=== PATIENT | female | born 1970 ===

== ENCOUNTER 2018-11-17 10:43 | Inpatient (IN) | payer OTHER ==
[2018-11-17 11:13] LABS: Basophils # (Auto) 0.1 K/mm3 (0.0-0.1); Basophils % (Auto) 0.8 % (0.0-1.8); Eosinophils # (Auto) 0.2 K/mm3 (0.0-0.4); Eosinophils % (Auto) 2.1 % (0.0-4.3); Hematocrit 43.6 % (30.3-42.9); Hemoglobin 14.4 gm/dl (10.1-14.3); Lymphocytes # (Auto) 1.8 K/mm3 (1.2-5.4); Lymphocytes % (Auto) 25.1 % (13.4-35.0); Mean Corpuscular HGB Conc 33 % (30-34); Mean Corpuscular Volume 88 fl (79-97); Monocytes # (Auto) 0.7 K/mm3 (0.0-0.8); Monocytes % (Auto) 10.1 % (0.0-7.3); Platelet Count 247 K/mm3 (140-440); Red Blood Count 4.95 M/mm3 (3.65-5.03); Red Cell Distribution Width 13.8 % (13.2-15.2)
--- NOTE | 2018-11-17 11:16 | Consultation ---
History of Present Illness History of present illness: [facility] Consult Services Impression: Patient presenting with agitation, encephalopathy, variable motor findings in the legs. Suspect more of a functional process. Rule out sinister intracranial process with MRI brain. Posterior circulation stroke manifest as her dizziness/N/V cannot be excluded, so not a tPA/intervention candidate as these symptoms started 4 days ago. Not a tpa candidate due to: out of window Not an KINDRA candidate due to: out of window Differential Diagnosis: 1. Cardioembolic stroke 2. Small vessel disease/lacune 3. Thromboembolic, [id number]-xptgdy mechanism 4. Hypercoagulable state-related infarct 5. Transient ischemic attack 6. Thrombotic mechanism, large artery disease 7. Functional disorder Comments: Door time: 1043 [facility] contacted: [phone] [facility] at bedside: 1101 NIHSS assessment time: 1104 Recommendations: MRI brain wo inpatient neurology consultation Inpatient stroke evaluation as per Neurology/ Internal Medicine Discussed with ED MD CC: stroke alert History of Present Illness Patient is a48 year old woman with no reported medical history. She presented from a clinic due to speech changes. Visit facilitated by Nigerian floor finisher helper. states she's been complaining of dizziness and nausea/vomiting for the last 4 days. She went to a clinic this morning and the provider thought her speech was slurred, so she was sent to the ED. On arrival, she has not been following commands, has been agitated and arguing with her . Speech at points has been nonsensical per education technician. Diagnostic: CT head wo - motion degraded, but nothing obviously acute Exam: NIHSS score: 13 She does not answer orientation questions and is not following commands. She is mainly arguing with her . She is seen moving her legs, but on exam they become flaccid. She has some periods of nonsensical speech without dysarthria Medical Decision Making: - Extensive number of diagnosis or management options are considered above. - Extensive amount of complex data reviewed. - High risk of complication and/or morbidity or mortality are associated with differential diagnostic considerations above. - There may be Uncertain outcome and increased probability of prolonged functional impairment or high probability of severe prolonged functional impairment associated with some of these differential diagnosis. Medical Data Reviewed: 1.Data reviewed include clinical labs, radiology, Medical Tests; 2.Tests results discussed w/performing or interpreting physician; 3.Obtaining/reviewing old medical records; 4.Obtaining case history from another source; 5.Independent review of image, tracing or specimen. Patient was informed the Neurology Consult would happen via TeleHealth consult by way of interactive audio and video telecommunications and consented to rec eiving care in this manner. Medications and Allergies Allergies Allergy/AdvReac Type Severity Reaction Status Date / Time naproxen Allergy Unknown Verified 11/17/18 11:08 Physical Examination - Vital Signs Vital Signs: Vital Signs Pulse Resp BP Pulse Ox 82 20 137/72 100 11/17/18 11:01 11/17/18 11:01 11/17/18 11:01 11/17/18 11:01 - Level of Consciousness 1a. Level of Consciousness: alert/keenly responsive - LOC Questions 1b. LOC Questions: answers no questions correctly - LOC Command 1c. LOC Commands: performs no tasks correctly - Best Gaze 2. Best Gaze: normal - Visual 3. Visual: no visual loss - Facial Palsy 4. Facial Palsy: normal symmetrical movement - Motor Arm 5a. Motor Arm Left: no drift 5b. Motor Arm Right: no drift - Motor Leg 6a. Motor Leg Left: no movement 6b. Motor Leg Right: no movement - Limb Ataxia 7. Limb Ataxia: absent - Sensory 8. Sensory: normal - Best Language 9. Best Language: mild/moderate aphasia - Dysarthria 10. Dysarthria: normal - Extinction and Inattention 11. Extinction/Inattention: no abnormality - Scoring Total Score: 13 Stroke Severity: Moderate Stroke Results - Laboratory Findings CBC and BMP: 11/17/18 11:01 11/17/18 11:01
[2018-11-17] MEDS ORDERED: ATIVAN ONE (11:22)
[2018-11-17 11:23] LABS: INR 0.96 (0.87-1.13)
[2018-11-17 11:24] LABS: Partial Thromboplastin Time 20.5 Sec. (24.2-36.6); Thrombin Time 15.4 Sec. (15.1-19.6)
[2018-11-17 11:31] LABS: Creatine Kinase MB 1.7 ng/mL (0.0-4.0)
[2018-11-17 11:32] LABS: Alanine Aminotransferase 42 units/L (7-56); Albumin 4.6 g/dL (3.9-5); BUN/Creatinine Ratio 17; Blood Urea Nitrogen 12 mg/dL (7-17); Calcium 9.9 mg/dL (8.4-10.2); Hemolysis Index 16
[2018-11-17] MEDS ORDERED: ATIVAN IV ONE (11:32)
--- NOTE | 2018-11-17 11:49 | Emergency Department Report ---
ED Altered Mental Status HPI - General Chief Complaint: Altered Mental Status Stated Complaint: WEAKNESS/DIZZY Time Seen by Provider: 11/17/18 10:55 Source: patient, family, EMS, chopper operator Mode of arrival: Stretcher Limitations: Language Barrier, Altered Mental Status - History of Present Illness Initial Comments: 48-year-old female presents to easily with 4 day history of generalized weakness and confusion. The patient was seen at a clinic this morning and the physician there and noticed that patient was having slurred speech, so EMS was called. Upon EMS arrival to the clinic physician reported that patient slurred speech resolved. Patient transported here to the ER. Patient has no weakness in her extremities. states since he started 4 days ago as well. Today was the first day of slurred speech. Patient complains of body aches diffusely. Haven't had been reports patient has had dizziness, nausea and vomiting 4 days. MD Complaint: altered mental status, confusion -: days(s) (4) Severity: severe Consistency of Symptoms: waxing and waning Associated Symptoms: weakness - Related Data Home Medications Medication Instructions Recorded Confirmed Last Taken No Known Home Medications [No 11/17/18 11/17/18 Unknown Reported Home Medications] Allergies Allergy/AdvReac Type Severity Reaction Status Date / Time naproxen Allergy Unknown Verified 11/17/18 11:08 ED Review of Systems ROS: Stated complaint: WEAKNESS/DIZZY Other details as noted in HPI Comment: All other systems reviewed and negative Constitutional: chills, fever Respiratory: denies: shortness of breath Cardiovascular: denies: chest pain Gastrointestinal: nausea, vomiting. denies: abdominal pain Neurological: confusion, other (dizziness, slurred speech reported). denies: headache ED Past Medical Hx - Medications Home Medications: Home Medications Medication Instructions Recorded Confirmed Last Taken Type No Known Home Medications [No 11/17/18 11/17/18 Unknown History Reported Home Medications] ED Physical Exam - General Limitations: Language Barrier, Altered Mental Status General appearance: alert, in no apparent distress - Head Head exam: Present: atraumatic, normocephalic - Eye Eye exam: Present: normal appearance, PERRL, EOMI - ENT ENT exam: Present: mucous membranes moist - Neck Neck exam: Present: normal inspection, full ROM - Respiratory Respiratory exam: Present: normal lung sounds bilaterally. Absent: respiratory distress - Cardiovascular Cardiovascular Exam: Present: regular rate, normal rhythm - GI/Abdominal GI/Abdominal exam: Present: soft, tenderness (suprapubic). Absent: distended - Extremities Exam Extremities exam: Present: normal inspection - Neurological Exam Neurological exam: Present: alert, altered (oriented to self), CN II-XII intact. Absent: motor sensory deficit - Psychiatric Psychiatric exam: Present: normal affect, normal mood - Skin Skin exam: Present: warm, dry, intact, normal color ED Course Vital Signs 11/17/18 11/17/18 11/17/18 11:01 12:00 12:07 Temperature 98.4 F Pulse Rate 82 77 Respiratory 20 28 H Rate Blood Pressure 141/87 Blood Pressure 137/72 [Right] O2 Sat by Pulse 100 99 Oximetry 11/17/18 11/17/18 11/17/18 12:30 13:00 13:50 Temperature Pulse Rate 68 Respiratory 16 12 Rate Blood Pressure 141/87 141/87 141/87 Blood Pressure [Right] O2 Sat by Pulse 99 94 97 Oximetry 11/17/18 11/17/18 11/17/18 14:00 14:02 15:30 Temperature Pulse Rate 77 Respiratory 14 Rate Blood Pressure 124/36 129/85 Blood Pressure 141/87 [Right] O2 Sat by Pulse 97 97 95 Oximetry 11/17/18 11/17/18 11/17/18 16:00 16:30 17:00 Temperature Pulse Rate 70 61 Respiratory 22 23 Rate Blood Pressure 128/62 143/80 137/74 Blood Pressure [Right] O2 Sat by Pulse 99 94 94 Oximetry 11/17/18 11/17/18 11/17/18 17:30 18:00 18:32 Temperature Pulse Rate 65 68 60 Respiratory 23 22 13 Rate Blood Pressure 122/72 127/65 109/55 Blood Pressure [Right] O2 Sat by Pulse 96 93 Oximetry 11/17/18 11/17/18 19:00 19:30 Temperature Pulse Rate 56 L 52 L Respiratory 18 19 Rate Blood Pressure 105/64 105/68 Blood Pressure [Right] O2 Sat by Pulse Oximetry - Lab Data Result diagrams: 11/17/18 11:01 11/17/18 11:01 Lab Results 11/17/18 11/17/18 11/17/18 Range/Units 11:01 11:01 11:01 WBC 7.3 (4.5-11.0) K/mm3 RBC 4.95 (3.65-5.03) M/mm3 Hgb 14.4 H (10.1-14.3) gm/dl Hct 43.6 H (30.3-42.9) % MCV 88 (79-97) fl MCH 29 (28-32) pg MCHC 33 (30-34) % RDW 13.8 (13.2-15.2) % Plt Count 247 (140-440) K/mm3 Lymph % (Auto) 25.1 (13.4-35.0) % [place] % (Auto) 10.1 H (0.0-7.3) % Eos % (Auto) 2.1 (0.0-4.3) % Baso % (Auto) 0.8 (0.0-1.8) % Lymph # 1.8 (1.2-5.4) K/mm3 [place] # 0.7 (0.0-0.8) K/mm3 Eos # 0.2 (0.0-0.4) K/mm3 Baso # 0.1 (0.0-0.1) K/mm3 Seg Neutrophils % 61.9 (40.0-70.0) % Seg Neutrophils # 4.5 (1.8-7.7) K/mm3 PT 12.5 (12.2-14.9) Sec. INR 0.96 (0.87-1.13) APTT 20.5 L (24.2-36.6) Sec. Thrombin Time 15.4 (15.1-19.6) Sec. Sodium 139 (137-145) mmol/L Potassium 3.9 (3.6-5.0) mmol/L Chloride 100.2 (98-107) mmol/L Carbon Dioxide 26 (22-30) mmol/L Anion Gap 17 mmol/L BUN 12 (7-17) mg/dL Creatinine 0.7 (0.7-1.2) mg/dL Estimated GFR > 60 ml/min BUN/Creatinine Ratio 17 % Glucose 110 H (65-100) mg/dL POC Glucose (70-105) Calcium 9.9 (8.4-10.2) mg/dL Total Bilirubin 0.60 (0.1-1.2) mg/dL AST 28 (5-40) units/L ALT 42 (7-56) units/L Alkaline Phosphatase 87 (35-129) units/L Total Creatine Kinase 62 (30-135) units/L CK-MB (CK-2) 1.7 (0.0-4.0) ng/mL CK-MB (CK-2) Rel Index 2.7 (0-4) Troponin T < 0.010 (0.00-0.029) ng/mL Total Protein 7.8 (6.3-8.2) g/dL Albumin 4.6 (3.9-5) g/dL Albumin/Globulin Ratio 1.4 % Urine Color (Yellow) Urine Turbidity (Clear) Urine pH (5.0-7.0) Ur Specific [place] (1.003-1.030) Urine Protein (Negative) mg/dL Urine Glucose (UA) (Negative) mg/dL Urine Ketones (Negative) mg/dL Urine Blood (Negative) Urine Nitrite (Negative) Urine Bilirubin (Negative) Urine Urobilinogen (<2.0) mg/dL Ur Leukocyte Esterase (Negative) Urine WBC (Auto) (0.0-6.0) /HPF Urine RBC (Auto) (0.0-6.0) /HPF U Epithel Cells (Auto) (0-13.0) /HPF Amorphous Crystals Urine Mucus /HPF 11/17/18 11/17/18 Range/Units 11:03 12:07 WBC (4.5-11.0) K/mm3 RBC (3.65-5.03) M/mm3 Hgb (10.1-14.3) gm/dl Hct (30.3-42.9) % MCV (79-97) fl MCH (28-32) pg MCHC (30-34) % RDW (13.2-15.2) % Plt Count (140-440) K/mm3 Lymph % (Auto) (13.4-35.0) % [place] % (Auto) (0.0-7.3) % Eos % (Auto) (0.0-4.3) % Baso % (Auto) (0.0-1.8) % Lymph # (1.2-5.4) K/mm3 [place] # (0.0-0.8) K/mm3 Eos # (0.0-0.4) K/mm3 Baso # (0.0-0.1) K/mm3 Seg Neutrophils % (40.0-70.0) % Seg Neutrophils # (1.8-7.7) K/mm3 PT (12.2-14.9) Sec. INR (0.87-1.13) APTT (24.2-36.6) Sec. Thrombin Time (15.1-19.6) Sec. Sodium (137-145) mmol/L Potassium (3.6-5.0) mmol/L Chloride (98-107) mmol/L Carbon Dioxide (22-30) mmol/L Anion Gap mmol/L BUN (7-17) mg/dL Creatinine (0.7-1.2) mg/dL Estimated GFR ml/min BUN/Creatinine Ratio % Glucose (65-100) mg/dL POC Glucose 103 (70-105) Calcium (8.4-10.2) mg/dL Total Bilirubin (0.1-1.2) mg/dL AST (5-40) units/L ALT (7-56) units/L Alkaline Phosphatase (35-129) units/L Total Creatine Kinase (30-135) units/L CK-MB (CK-2) (0.0-4.0) ng/mL CK-MB (CK-2) Rel Index (0-4) Troponin T (0.00-0.029) ng/mL Total Protein (6.3-8.2) g/dL Albumin (3.9-5) g/dL Albumin/Globulin Ratio % Urine Color Yellow (Yellow) Urine Turbidity Hazy (Clear) Urine pH 9.0 H (5.0-7.0) Ur Specific [place] 1.015 (1.003-1.030) Urine Protein <15 mg/dl (Negative) mg/dL Urine Glucose (UA) Neg (Negative) mg/dL Urine Ketones 20 (Negative) mg/dL Urine Blood Neg (Negative) Urine Nitrite Neg (Negative) Urine Bilirubin Neg (Negative) Urine Urobilinogen < 2.0 (<2.0) mg/dL Ur Leukocyte Esterase Neg (Negative) Urine WBC (Auto) 5.0 (0.0-6.0) /HPF Urine RBC (Auto) 2.0 (0.0-6.0) /HPF U Epithel Cells (Auto) 2.0 (0-13.0) /HPF Amorphous Crystals Few Urine Mucus Few /HPF - EKG Data -: EKG Interpreted by Me EKG shows normal: sinus rhythm, axis, intervals, QRS complexes, ST-T waves Rate: normal Interpretation: no acute changes - Radiology Data Radiology results: report reviewed, image reviewed - Medical Decision Making - dizziness, confusion, vomiting x 4 days - episode of slurred speech today that resolved - no other neuro deficits - CT Head normal - pt seen and evaluated by teleneurologist - outside tPA window since initial sx's for 4 days - labs unremarkable - will admit for further workup - Differential Diagnosis CVA, vertigo, infection Critical care attestation.: If time is entered above; I have spent that time in minutes in the direct care of this critically ill patient, excluding procedure time. ED Disposition Clinical Impression: Dizziness, Encephalopathy acute Disposition: DC-[id number] OP ADMIT IP TO THIS HOSP Is pt being admited?: Yes Condition: Stable Time of Disposition: 12:50
--- NOTE | 2018-11-17 11:53 | Cat Scan Report ---
CT HEAD WITHOUT CONTRAST INDICATION / CLINICAL INFORMATION: Stroke symptoms. Code stroke. TECHNIQUE: Axial imaging performed from the skull apex through the skull base without the use of cont rast. Sagittal and coronal reformatted images. All CT scans at this location are performed using CT dose reduction for ALARA by means of automated exposure control. COMPARISON: None available. FINDINGS: Comment: This exam is limited by extensive motion artifact. CEREBRAL PARENCHYMA: No significant abnormality. No acute territorial infarct. HEMORRHAGE: None. EXTRA-AXIAL SPACES: Normal in size and morphology for the patient's age. VENTRICULAR SYSTEM: Normal in size and morphology for the patient's age. MIDLINE SHIFT OR HERNIATION: None. CEREBELLUM / BRAINSTEM: No significant abnormality. CALVARIUM: No significant abnormality. ORBITS: Normal as visualized. PARANASAL SINUSES / MASTOID AIR CELLS: Normal as visualized. SOFT TISSUES of HEAD: No significant abnormality. ADDITIONAL FINDINGS: None. IMPRESSION: Slightly limited exam by motion. No acute intracranial process is identified. These findings were discussed with Dr. Alex in the emergency department at 1145 hours Eastern standar d time. Signer Name: Brock Engel Jr, MD Signed: 11/17/2018 11:49 AM Workstation Name: [id number]
[2018-11-17 12:23] LABS: Amorphous Crystals,Urine Few; Bilirubin,Urine NEG (Negative); Blood,Urine NEG (Negative); Color,Urine Yellow (Yellow); Mucus,Urine FEW /HPF; Protein,Urine <15 mg/dL mg/dL (Negative); Urobilinogen,Urine < 2.0 mg/dL (<2.0)
--- NOTE | 2018-11-17 12:38 | XRay Report ---
CHEST 1 VIEW 11:40 AM INDICATION / CLINICAL INFORMATION: Altered mental status. COMPARISON: None available. FINDINGS: SUPPORT DEVICES: None. HEART / MEDIASTINUM: The heart size and pulmonary vasculature are normal. The aorta is normal in jeff fransisco. LUNGS / PLEURA: Low lung volumes without significant parenchymal or pleural abnormality. No pneumotho rax. ADDITIONAL FINDINGS: No significant additional findings. IMPRESSION: Low lung volumes without acute abnormality. Signer Name: Elian Sheriff MD Signed: 11/17/2018 12:34 PM Workstation Name: [id number]
[2018-11-17] MEDS ORDERED: IBUPROFEN PO ONE (16:19)
[2018-11-17] MEDS ORDERED: IBUPROFEN PO PRN (18:09)
[2018-11-17] MEDS ORDERED: DILAUDID IV PRN (18:09)
[2018-11-17] MEDS ORDERED: SODIUM CHLORIDE FLUSH SYRINGE 10 ML IV PRN ×3 (18:09→18:25)
[2018-11-17] MEDS ORDERED: ZOFRAN IV PRN ×2 (18:09→18:12)
[2018-11-17] MEDS ORDERED: ANTIVERT PO PRN (18:11)
[2018-11-17] MEDS ORDERED: REGLAN IV PRN (18:12)
[2018-11-17] MEDS ORDERED: PHENERGAN PR PRN (18:12)
[2018-11-17] MEDS ORDERED: TYLENOL PO PRN (18:12)
[2018-11-17] MEDS: PEPCID IV SCH (21:34)
[2018-11-17] MEDS: NACL 0.9% 1000 ML 1,000 ML IV SCH (21:34)
[2018-11-17] MEDS: SODIUM CHLORIDE FLUSH SYRINGE 10 ML IV SCH ×2 (21:38)
[2018-11-18] MEDS: TYLENOL PO PRN ×3 (01:51→21:48)
--- NOTE | 2018-11-18 02:53 | Event Note ---
Date: 11/17/18 See H/p in reports Encephalopathy CVA? Ataxia Acute Labrynthitis N//V
--- NOTE | 2018-11-18 03:21 | History and Physical Report ---
CHIEF COMPLAINT: 1. Altered mental status. 2. Nausea and vomiting for 3-4 days. 3. Slurred speech. 4. Ataxic gait. HISTORY OF PRESENT ILLNESS: A 48-year-old female with no significant past medical history, comes in for slurred speech, nausea, vomiting for 3-4 days and ataxic gait, also confusion present. Because of the language barrier, history taking was difficult. As per the , the patient has been having nausea and vomiting 3-4 times a day and also unsteady gait. Also, some confusion, which has resolved of late. During my exam, the patient was not confused, able to answer questions appropriately in spite of the language barrier. PAST MEDICAL HISTORY: None. PAST SURGICAL HISTORY: None. SOCIAL HISTORY: Does not smoke. No alcohol, no recreational drugs. FAMILY HISTORY: Hypertension. REVIEW OF SYSTEMS: Significant for nausea and vomiting for 4 days along with slurred speech and unsteady gait. Slight confusion which is clearing now. PHYSICAL EXAMINATION: GENERAL: Middle-aged female, cooperative during examination. VITAL SIGNS: Blood pressure is 109/55, temperature 98.5, pulse 60, respirations 13. HEENT: Unremarkable. Pupils equal and reactive. NECK: Supple, no lymphadenopathy, no thyromegaly. LUNGS: Clear to auscultation and percussion. Good air entry. CARDIOVASCULAR: S1, S2 heard. No gallop, no murmur, no rub. Apical impulse in left fifth intercostal space and midclavicular line. ABDOMEN: Soft and benign. No hepatosplenomegaly. No guarding, no rigidity. Hernial orifices are normal. EXTREMITIES: 5/5 power in all 4 extremities. NEUROLOGIC: Gait could not be tested as the patient was refusing to do it. Hand-eye coordination normal. No nystagmus. No nasal regurgitation of fluids. LABORATORY DATA: Significant for white count of 7300, H and H is 14.4 and 43.6, platelet count is 247,000. Electrolytes are normal. Glucose is 110, slightly high. Protein is normal. Urine is normal. Head CT was normal. Echocardiogram showed normal sinus rhythm, heart rate of 68 per minute, no acute ST-T wave changes. Head CT, no acute findings. Chest x-ray, no acute findings. ASSESSMENT AND PLAN: 1. Acute encephalopathy, etiology unclear. The patient has slurred speech and confusion, which has resolved. No seizures. We will observe. EEG if necessary. 2. Ataxia, possibly secondary to labyrinthitis. As per tele Neurology, we will do the stroke workup. 3. Acute labyrinthitis. Meclizine 12.5 b.i.d. 4. Acute dehydration secondary to nausea and vomiting. IV fluids for now. 5. Deep venous thrombosis prophylaxis, Lovenox 40 mg subcutaneous daily. 6. Gastrointestinal prophylaxis, Protonix 40 mg subcutaneous daily. [facility]# [id number] VSM/NTS
[2018-11-18 06:28] LABS: Basophils # (Auto) 0.1 K/mm3 (0.0-0.1); Basophils % (Auto) 0.6 % (0.0-1.8); Eosinophils # (Auto) 0.2 K/mm3 (0.0-0.4); Eosinophils % (Auto) 2.8 % (0.0-4.3); Hematocrit 39.3 % (30.3-42.9); Hemoglobin 13.2 gm/dl (10.1-14.3); Lymphocytes # (Auto) 2.2 K/mm3 (1.2-5.4); Lymphocytes % (Auto) 25.4 % (13.4-35.0); Mean Corpuscular HGB Conc 34 % (30-34); Mean Corpuscular Volume 87 fl (79-97); Monocytes # (Auto) 0.9 K/mm3 (0.0-0.8); Monocytes % (Auto) 9.9 % (0.0-7.3); Platelet Count 233 K/mm3 (140-440); Red Cell Distribution Width 13.7 % (13.2-15.2)
[2018-11-18 06:53] LABS: Alanine Aminotransferase 35 units/L (7-56); Albumin 4.1 g/dL (3.9-5); BUN/Creatinine Ratio 22; Blood Urea Nitrogen 13 mg/dL (7-17); Hemolysis Index 6; LDL Cholesterol,Direct 131 mg/dL (50-130)
[2018-11-18 07:36] LABS: Chol/HDL Ratio 3.53 %; HDL Cholesterol 54 mg/dL (40-59)
--- NOTE | 2018-11-18 08:17 | Progress Note ---
Assessment and Plan Assessment and plan: --Slurred speech: Rule out CVA/TIA Not a candidate for TPA , telemetry neurologist recommend neuro workup Follow MRI MRA carotid Doppler, echocardiogram PT OT ST, follow neurology consult --Ataxia; probably due to neuro symptoms Fall precautions, physical therapy, follow neuro workup May need ENT evaluation if no improvement upon discharge --Metabolic encephalopathy; present on admission Dizziness confusion, supportive care Follow neuro workup --Intractable nausea vomiting/acute gastritis IV fluids, Protonix, supportive care --Dyslipidemia; statin, low cholesterol diet --DVT prophylaxis; Lovenox Monitor closely and adjust the management as needed His CVA workup is negative and patient is stable May be discharged home tomorrow Plan of care reviewed with the patient and her at the bedside Through the language line History Interval history: Patient seen and examined medical records reviewed Conversation through the language line Patient was Admitted with brief episode of slurred speech Candidate for TPA CVA workup is in progress Patient is evaluated by a neurologist Patient is alert and awake speech clear Complaints of headache Vital signs reviewed Hospitalist Physical - Constitutional Vitals: Temp Pulse Resp BP Pulse Ox 99.2 F 69 20 131/79 98 11/18/18 04:27 11/18/18 04:27 11/18/18 04:27 11/18/18 04:27 11/18/18 04:27 General appearance: Present: no acute distress, well-nourished - EENT Eyes: Present: PERRL, EOM intact - Neck Neck: Present: supple, normal ROM - Respiratory Respiratory effort: normal Respiratory: bilateral: diminished, negative: rales, rhonchi, wheezing - Cardiovascular Rhythm: regular Heart Sounds: Present: S1 & S2 - Extremities Extremities: no ischemia, No edema - Abdominal General gastrointestinal: soft, non-tender, non-distended, normal bowel sounds - Integumentary Integumentary: Present: clear, warm - Psychiatric Psychiatric: appropriate mood/affect, cooperative - Neurologic Neurologic: CNII-XII intact, moves all extremities Results - Labs CBC & Chem 7: 11/18/18 05:55 11/18/18 05:55 Labs: Laboratory Last Values WBC 8.8 K/mm3 (4.5-11.0) 11/18/18 05:55 RBC 4.50 M/mm3 (3.65-5.03) 11/18/18 05:55 Hgb 13.2 gm/dl (10.1-14.3) 11/18/18 05:55 Hct 39.3 % (30.3-42.9) 11/18/18 05:55 MCV 87 fl (79-97) 11/18/18 05:55 MCH 29 pg (28-32) 11/18/18 05:55 MCHC 34 % (30-34) 11/18/18 05:55 RDW 13.7 % (13.2-15.2) 11/18/18 05:55 Plt Count 233 K/mm3 (140-440) 11/18/18 05:55 Lymph % (Auto) 25.4 % (13.4-35.0) 11/18/18 05:55 Nobles % (Auto) 9.9 % (0.0-7.3) H 11/18/18 05:55 Eos % (Auto) 2.8 % (0.0-4.3) 11/18/18 05:55 Baso % (Auto) 0.6 % (0.0-1.8) 11/18/18 05:55 Lymph # 2.2 K/mm3 (1.2-5.4) 11/18/18 05:55 [place]les # 0.9 K/mm3 (0.0-0.8) H 11/18/18 05:55 Eos # 0.2 K/mm3 (0.0-0.4) 11/18/18 05:55 Baso # 0.1 K/mm3 (0.0-0.1) 11/18/18 05:55 Seg Neutrophils % 61.3 % (40.0-70.0) 11/18/18 05:55 Seg Neutrophils # 5.4 K/mm3 (1.8-7.7) 11/18/18 05:55 PT 12.5 Sec. (12.2-14.9) 11/17/18 11:01 INR 0.96 (0.87-1.13) 11/17/18 11:01 APTT 20.5 Sec. (24.2-36.6) L 11/17/18 11:01 15.4 Sec. (15.1-19.6) 11/17/18 11:01 Sodium 141 mmol/L (137-145) 11/18/18 05:55 Potassium 3.9 mmol/L (3.6-5.0) 11/18/18 05:55 Chloride 104.2 mmol/L (98-107) 11/18/18 05:55 Carbon Dioxide 24 mmol/L (22-30) 11/18/18 05:55 17 mmol/L 11/18/18 05:55 BUN 13 mg/dL (7-17) 11/18/18 05:55 0.6 mg/dL (0.7-1.2) L 11/18/18 05:55 Estimated GFR > 60 ml/min 11/18/18 05:55 22 % 11/18/18 05:55 Glucose 99 mg/dL (65-100) 11/18/18 05:55 POC Glucose 103 (70-105) 11/17/18 11:03 5.4 % (4-6) 11/17/18 19:46 Calcium 9.0 mg/dL (8.4-10.2) 11/18/18 05:55 0.70 mg/dL (0.1-1.2) 11/18/18 05:55 AST 22 units/L (5-40) 11/18/18 05:55 ALT 35 units/L (7-56) 11/18/18 05:55 78 units/L (35-129) 11/18/18 05:55 62 units/L (30-135) 11/17/18 11:01 CK-MB (CK-2) 1.7 ng/mL (0.0-4.0) 11/17/18 11:01 CK-MB (CK-2) Rel Index 2.7 (0-4) 11/17/18 11:01 < 0.010 ng/mL (0.00-0.029) 11/17/18 11:01 6.9 g/dL (6.3-8.2) 11/18/18 05:55 4.1 g/dL (3.9-5) 11/18/18 05:55 1.5 % 11/18/18 05:55 Triglycerides 111 mg/dL (2-149) 11/18/18 05:55 Cholesterol 191 mg/dL (50-199) 11/18/18 05:55 131 mg/dL (50-130) H 11/18/18 05:55 54 mg/dL (40-59) 11/18/18 05:55 3.53 % 11/18/18 05:55 Yellow (Yellow) 11/17/18 12:07 Hazy (Clear) 11/17/18 12:07 9.0 (5.0-7.0) H 11/17/18 12:07 Ur Specific [place] 1.015 (1.003-1.030) 11/17/18 12:07 <15 mg/dl mg/dL (Negative) 11/17/18 12:07 Neg mg/dL (Negative) 11/17/18 12:07 20 mg/dL (Negative) 11/17/18 12:07 Neg (Negative) 11/17/18 12:07 Neg (Negative) 11/17/18 12:07 Neg (Negative) 11/17/18 12:07 < 2.0 mg/dL (<2.0) 11/17/18 12:07 Ur Leukocyte Esterase Neg (Negative) 11/17/18 12:07 5.0 /HPF (0.0-6.0) 11/17/18 12:07 2.0 /HPF (0.0-6.0) 11/17/18 12:07 U Epithel Cells (Auto) 2.0 /HPF (0-13.0) 11/17/18 12:07 Amorphous Crystals Few 11/17/18 12:07 Few /HPF 11/17/18 12:07 Active Medications - Current Medications Current Medications: Generic Name Dose Route Start Last Admin Trade Name Freq PRN Reason Stop Dose Admin Acetaminophen 650 mg 11/17/18 18:09 11/18/18 07:33 Tylenol PO 650 mg Q4H PRN Administration Pain MILD(1-3)/Fever >100.5/SAAVEDRA Acetaminophen 650 mg 11/17/18 18:12 Tylenol PO Q4H PRN Pain MILD(1-3)/Fever >100.5/SAAVEDRA Famotidine 20 mg 11/17/18 22:00 11/17/18 21:34 Pepcid IV 20 mg BID EDITH Administration Hydromorphone HCl 0.5 mg 11/17/18 18:09 Dilaudid IV Q3H PRN Pain , Severe (7-10) Sodium Chloride 1,000 mls @ 75 mls/hr 11/17/18 19:00 11/17/18 21:34 Nacl 0.9% 1000 Ml IV 75 mls/hr DIRECT EDITH Administration Ibuprofen 600 mg 11/17/18 18:09 Ibuprofen PO Q6H PRN Pain, Mild (1-3) Meclizine HCl 12.5 mg 11/17/18 18:11 Antivert PO Q12H PRN Vertigo Metoclopramide HCl 10 mg 11/17/18 18:12 Reglan IV Q6H PRN Nausea And Vomiting Ondansetron HCl 4 mg 11/17/18 18:09 Zofran IV Q8H PRN Nausea And Vomiting Ondansetron HCl 4 mg 11/17/18 18:12 Zofran IV Q3H PRN Nausea And Vomiting Promethazine HCl 25 mg 11/17/18 18:12 Phenergan CO Q6H PRN N/V IF NPO AND NO IV ACCESS Sodium Chloride 10 ml 11/17/18 22:00 11/17/18 21:38 Sodium Chloride Flush Syringe 10 Ml IV 10 ml BID EDITH Administration Sodium Chloride 10 ml 11/17/18 18:09 Sodium Chloride Flush Syringe 10 Ml IV PRN PRN LINE FLUSH Sodium Chloride 10 ml 11/17/18 22:00 11/17/18 21:38 Sodium Chloride Flush Syringe 10 Ml IV Not Given BID EDITH Sodium Chloride 10 ml 11/17/18 18:12 Sodium Chloride Flush Syringe 10 Ml IV PRN PRN LINE FLUSH Sodium Chloride 10 ml 11/17/18 18:25 Sodium Chloride Flush Syringe 10 Ml IV PRN PRN LINE FLUSH
[2018-11-18] MEDS: PEPCID IV SCH ×2 (09:41→21:48)
[2018-11-18] MEDS: SODIUM CHLORIDE FLUSH SYRINGE 10 ML IV SCH ×4 (09:41→21:49)
--- NOTE | 2018-11-18 11:36 | Vascular Lab Report ---
BILATERAL CAROTID DOPPLER ULTRASOUND INDICATION : stroke TECHNIQUE: Grayscale and color Doppler imaging performed through the neck. COMPARISON: None FINDINGS: Right: There is mild smooth noncalcified plaque at the bifurcation. Peak systolic velocity in the C CA is 65 cm/s with end-diastolic velocity of 22 cm/s. Peak systolic velocity in the proximal ICA is 8 1 cm/s with end-diastolic velocity of 37 cm/s. ICA to CCA ratio is less than 2. There is antegrade f low in the ECA and the vertebral artery. Left: There is mild smooth noncalcified plaque at the bifurcation. Peak systolic velocity in the CCA is 53 cm/s with end-diastolic velocity of 13 cm/s. Peak systolic velocity in the proximal ICA is 67 c m/s with end-diastolic velocity of 24 cm/s. ICA to CCA ratio is less than 2. There is antegrade flow in the ECA and the vertebral artery. IMPRESSION: No hemodynamically significant stenosis by NASCET criteria. There is less than 50% lumina l narrowing in the carotid systems bilaterally. Signer Name: Brock Engel Jr, MD Signed: 11/18/2018 11:32 AM Workstation Name: [id number]
--- NOTE | 2018-11-18 12:54 | Consultation ---
Medications and Allergies Allergies Allergy/AdvReac Type Severity Reaction Status Date / Time naproxen Allergy Unknown Verified 11/17/18 11:08 Home Medications Medication Instructions Recorded Confirmed Last Taken Type No Known Home Medications [No 11/17/18 11/17/18 Unknown History Reported Home Medications] Active Meds: Active Medications Acetaminophen (Tylenol) 650 mg PO Q4H PRN PRN Reason: Pain MILD(1-3)/Fever >100.5/SAAVEDRA Last Admin: 11/18/18 07:33 Dose: 650 mg Documented by: Acetaminophen (Tylenol) 650 mg PO Q4H PRN PRN Reason: Pain MILD(1-3)/Fever >100.5/SAAVEDRA Atorvastatin Calcium (Lipitor) 40 mg PO QHS [facility] Famotidine (Pepcid) 20 mg IV BID [facility] Last Admin: 11/18/18 09:41 Dose: Not Given Documented by: Hydromorphone HCl (Dilaudid) 0.5 mg IV Q3H PRN PRN Reason: Pain , Severe (7-10) Sodium Chloride (Nacl 0.9% 1000 Ml) 1,000 mls @ 75 mls/hr IV DIRECT [facility] Last Admin: 11/17/18 21:34 Dose: 75 mls/hr Documented by: Ibuprofen (Ibuprofen) 600 mg PO Q6H PRN PRN Reason: Pain, Mild (1-3) Meclizine HCl (Antivert) 12.5 mg PO Q12H PRN PRN Reason: Vertigo Metoclopramide HCl (Reglan) 10 mg IV Q6H PRN PRN Reason: Nausea And Vomiting Ondansetron HCl (Zofran) 4 mg IV Q3H PRN PRN Reason: Nausea And Vomiting Promethazine HCl (Phenergan) 25 mg NV Q6H PRN PRN Reason: N/V IF NPO AND NO IV ACCESS Sodium Chloride (Sodium Chloride Flush Syringe 10 Ml) 10 ml IV BID [facility] Last Admin: 11/18/18 09:41 Dose: Not Given Documented by: Sodium Chloride (Sodium Chloride Flush Syringe 10 Ml) 10 ml IV PRN PRN PRN Reason: LINE FLUSH Sodium Chloride (Sodium Chloride Flush Syringe 10 Ml) 10 ml IV BID [facility] Last Admin: 11/17/18 21:38 Dose: Not Given Documented by: Sodium Chloride (Sodium Chloride Flush Syringe 10 Ml) 10 ml IV PRN PRN PRN Reason: LINE FLUSH Sodium Chloride (Sodium Chloride Flush Syringe 10 Ml) 10 ml IV PRN PRN PRN Reason: LINE FLUSH Physical Examination - Vital Signs Vital Signs: Vital Signs Pulse Resp BP Pulse Ox 82 20 137/72 100 11/17/18 11:01 11/17/18 11:01 11/17/18 11:01 11/17/18 11:01 Results - Laboratory Findings CBC and BMP: 11/18/18 05:55 11/18/18 05:55 Abnormal Lab Findings: Abnormal Labs 11/17/18 11/17/18 11/17/18 11:01 11:01 11:01 Hgb 14.4 H Hct 43.6 H [place] % (Auto) 10.1 H [place] # APTT 20.5 L Creatinine Glucose 110 H LDL Cholesterol Direct Urine pH 11/17/18 11/18/18 11/18/18 12:07 05:55 05:55 Hgb Hct [place] % (Auto) 9.9 H [place] # 0.9 H APTT Creatinine 0.6 L Glucose LDL Cholesterol Direct 131 H Urine pH 9.0 H Assessment and Plan Neurology consult report. Patient is a 48-year-old female who was brought to the emergency on 11/17/2018 because of an episode of slurred speech as well as altered why she was being evaluated by a primary care physician in his office. Patient went to because she is nausea and vomiting for 4 days intermittently. She was also found to be confused as reported by family members to the primary care physician. Later time she was brought to the emergency department from Dr. Wilkes's her confusion apparently disappeared and she was seen by neurologist on tele medicine. Workup included CT scan of the brain which did not show any infarct although the CT scan was limited due to movement artifact. Carotid duplex was within normal limit and echocardiogram was also within normal limit except for mild mitral regurgitation. Patient LOW blood did not show any significant abnormalities except for elevated LDH. Patient was not on aspirin or stating prior to admission to the hospital. She did not have any history of stroke. Physical examination. Generators. He became distress patient is alert and appropriate has insight into her problems and answers questions appropriately. There was some left knee. Causing some communication problem i.e. examining the patient however patient is using a few who was fluent in [place] and I talked with the nephew and guard the necessary information. Heart. Normal rate and rhythm. Carotids: both palpable, no bruit.. Cranial nerves. Pupils reacted to light and accommodation extra ocular movements are intact,there is no facial asymmetry,other cranial labs are also within normal limit Motor. There was no pronator drift. Strength in the upper and lower extremities were symmetric both proximally and distally. Patient had plantar response on both sides. Coordination. Coordination was intact Sensory. Sensory examination was grossly normal limit. Gait. Normal gait. Impression. At present I find the patient intact from neurological standpoint. Heart nausea vomiting could be from a neurological related problems which can be determined by the primary care physician. Recommendation. #1. Patient should be started aspirin 81 mg by mouth daily #2. Patient should be started on statin and or [id number] flaxseed artificial which contains low deformity at 356.
--- NOTE | 2018-11-18 14:35 | Magnetic Resonance Report ---
MR brain wo con INDICATION / CLINICAL INFORMATION: 48 years Female; stroke. TECHNIQUE: Multiplanar, multisequence MR images of the brain were obtained. There is significant motion artifact COMPARISON: CT - 11/17/2018 FINDINGS: BRAIN / INTRACRANIAL CONTENTS: No acute hemorrhage, mass effect, midline shift, hydrocephalus, or acu te, large territorial infarct. No chronic infarct or atrophy. No significant white matter abnormality . CRANIOCERVICAL JUNCTION: No significant abnormality. VASCULAR FLOW-VOIDS: No significant abnormality. ORBITS: No significant abnormality of visualized orbits. SINUSES / MASTOIDS: Mild mucosal thickening seen in the ethmoids. ADDITIONAL FINDINGS: None. IMPRESSION: 1. No focal mass, hemorrhage, hydrocephalus, or acute ischemia on this limited study. Signer Name: Gsu Erwin MD, III Signed: 11/18/2018 2:30 PM Workstation Name: [id number]
--- NOTE | 2018-11-18 14:38 | Magnetic Resonance Report ---
MR MRA/MRV head wo con INDICATION / CLINICAL INFORMATION: 48 years Female; stroke. TECHNIQUE: 3-D time of flight. NASCET type criteria used to evaluate stenoses. Motion artifact COMPARISON: None available. FINDINGS: INTERNAL CAROTID ARTERIES: No significant narrowing appreciated. Areas of mild narrowing suggested in both internal carotid arteries, however. VERTEBROBASILAR SYSTEM: There may be short segment narrowing in the distal right vertebral artery. DISTAL BRANCHES: Distal branches of the anterior, middle, and posterior cerebral arteries are fairly symmetric in appearance and number. Focal areas of narrowing suggested in the P1 - 2 region on the ri ght. ANEURYSM: None identified. IMPRESSION: Areas of narrowing in the posterior circulation, as described above. Signer Name: Gus Erwin MD, III Signed: 11/18/2018 2:33 PM Workstation Name: [id number]
[2018-11-18] MEDS: NACL 0.9% 1000 ML 1,000 ML IV SCH (18:44)
[2018-11-19] MEDS: TYLENOL PO PRN (03:18)
[2018-11-19] MEDS: NACL 0.9% 1000 ML 1,000 ML IV SCH (06:30)
--- NOTE | 2018-11-19 08:40 | Discharge Summary ---
Providers - Providers Date of Admission: 11/18/18 16:35 Date of discharge: 11/19/18 Attending physician: SWATI GOMEZ 11/17/18 Consult to Case Management [CONS] Routine Services Needed at Discharge: Budget And Policy Analyst Notified:: lois 11/17/18 18:09 Consult to Physician [CONS] Routine Comment: Consulting Provider: TERRI WRIGHT Physician Instructions: Reason For Exam: CVA/encephalopathy 11/17/18 18:25 Occupational Therapy Evaluate and Treat [CONS] Routine Comment: Reason For Exam: Neuro deficits Physical Therapy Evaluation and Treat [CONS] Routine Comment: Reason For Exam: Neuro deficits Hospitalization Condition: Stable Pertinent studies: CT head without contrast; no acute intracranial abnormality noted MRI brain; no focal mass,or hemorrhage, no acute ischemia MRA brain; area of narrowing in the posterior circulation Carotid Doppler; < 50% stenosis/ hemodynamically not significant Echocardiogram; ejection fraction 55-60%, impaired relaxation of the left ventricle Negative shunt Chest x-ray; low lung volumes Hospital course: --Slurred speech: Possible TIA Neuro workup is negative. Acute CVA ruled out Neurology evaluated, physical therapy evaluated no needs --Ataxia; probably due to neuro symptoms; resolved Fall precautions, meclizine as needed May need ENT evaluation if no improvement upon discharge --Metabolic encephalopathy; present on admission Dizziness confusion, supportive care Symptoms completely resolved --Intractable nausea vomiting/acute gastritis IV fluids, Protonix, supportive care Symptoms resolved --Dyslipidemia; statin, low cholesterol diet --DVT prophylaxis; Lovenox Neuro workup negative .acute CVA ruled out Patient is stable for discharge Plan of care reviewed with the patient and her at the bedside Through the language line Time spent for discharge: 32 min Core Measure Documentation - Palliative Care Palliative Care/ Comfort Measures: Not Applicable - Core Measures Any of the following diagnoses?: none Exam - Constitutional Vitals: Temp Pulse Resp BP Pulse Ox 98.2 F 70 18 127/52 97 11/19/18 04:29 11/19/18 04:29 11/19/18 04:29 11/19/18 04:29 11/19/18 07:49 General appearance: Present: no acute distress, well-nourished - EENT Eyes: Present: PERRL, EOM intact - Neck Neck: Present: supple, normal ROM - Respiratory Respiratory effort: normal Respiratory: negative: rales, rhonchi, wheezing - Cardiovascular Rhythm: regular Heart Sounds: Present: S1 & S2 - Extremities Extremities: no ischemia, No edema - Abdominal General gastrointestinal: Present: soft, non-tender, non-distended, normal bowel sounds - Integumentary Integumentary: Present: clear, warm - Musculoskeletal Musculoskeletal: strength equal bilaterally, generalized weakness - Psychiatric Psychiatric: appropriate mood/affect, cooperative - Neurologic Neurologic: CNII-XII intact, moves all extremities Plan Activity: advance as tolerated Diet: low cholesterol Additional Instructions: Advised to follow primary care physician and neurologist as scheduled. Advised to see wet finisher for vision test as needed. Advised to see private ENT if symptoms of dizziness and vertigo do not improve Follow up with: FAITH ALONSO [Other] - 7 Days KIRSTIE HOYT MD [Staff Physician] - 7 Days Prescriptions: Meclizine [Antivert] 12.5 mg PO Q12H PRN #30 tablet PRN Reason: Vertigo Aspirin EC [Halfprin EC] 81 mg PO QDAY #30 tablet. AtorvaSTATin [Lipitor] 40 mg PO QHS #30 tablet
[2018-11-19] MEDS: PEPCID IV SCH (09:55)
[2018-11-19] MEDS: SODIUM CHLORIDE FLUSH SYRINGE 10 ML IV SCH (09:56)
[2018-11-19] MEDS ORDERED: ASPIRIN PO SCH (10:00)
[2018-11-19 12:40] VITALS: BP 147/74
== END 2018-11-19 14:45 | disposition home or self-care (01) | DRG 391 ==
LOC: ED 10:43 → 4A 16:21 → INTOOBSV 16:21 → 3A 18:42 → OBSVTOIN 11-18 16:35
PROVIDERS: ADMIT Internal Medicine; ATTEND Internal Medicine
DX: K29.00 Acute gastritis without bleeding (principal); G93.41 Metabolic encephalopathy; G45.9 Transient cerebral ischemic attack, unspecified; E78.5 Hyperlipidemia, unspecified; H83.09 Labyrinthitis, unspecified ear; E86.0 Dehydration; Z82.49 Family history of ischemic heart disease and other diseases of the circulatory system; Z88.8 Allergy status to other drugs, medicaments and biological substances
CPT/HCPCS: 36415; 70450; 70544; 70551; 71045; 80053; 80061; 81001; 82550; 82553; 82962; 83036; 84484; 85025; 85610; 85670; 85730; 93005; 93010; 93306; 93880; 96374; 96375; G0378; A9270-GY; J2060; J7030